=== PATIENT | male | born 1975 | race Caucasian/White ===

== ENCOUNTER 2025-05-17 09:26 | Observation (INO) | payer BC ==
[2025-05-17] MEDS: SODIUM CHLORIDE 0.9% 500 ML INFUS.BAG IV ONE (10:55)
[2025-05-17 11:18] LABS: MCHC 33.9 g/dl (32.3-36.5); MEAN CELL VOLUME 88.0 fl (79.0-92.2); MEAN PLT VOLUME 10.4 fl (9.4-12.4); RDW 12.8 % (12.1-15.9)
[2025-05-17 11:44] LABS: CO2 23.0 mmol/L (21-32)
[2025-05-17 11:45] LABS: GLUCOSE,RANDOM 105.0 mg/dL (74-106)
[2025-05-17 11:48] LABS: CREATININE 1.3 mg/dL (0.55-1.3); SGOT/AST 146.0 U/L (15-37); SGPT/ALT 69.0 U/L (13-61)
[2025-05-17 11:49] LABS: TOT PROT 7.9 g/dl (6.4-8.2)
[2025-05-17 11:50] LABS: ALK PHOS 94.0 U/L (45-117)
[2025-05-17 12:01] LABS: EPI CELLS >36 /uL (0-25.1); HYALINE CASTS 22 /uL (0-3.1); URINE APPEARANCE CLOUDY; URINE BACTERIA 122 /uL (0-1359); URINE BILIRUBIN NEGATIVE (NEGATIVE); URINE COLOR DK YELLOW; URINE GLUCOSE (UA) NEGATIVE (NEGATIVE); URINE KETONE TRACE (NEGATIVE); URINE LEUK ESTERASE NEGATIVE (NEGATIVE); URINE NITRITE NEGATIVE (NEGATIVE); URINE PROTEIN 2+ (NEGATIVE); URINE UROBILINOGEN 1.0 mg/dL (0.2-1.0)
[2025-05-17 12:18] LABS: URINE RBC 20.1 /uL (0-23.9); URINE WBC 74.1 /uL (0-25.8); YEAST NONE SEEN (NEGATIVE)
[2025-05-17] MEDS ORDERED: CEFTRIAXONE 1 GM/50 ML BAG ONE (13:17)
[2025-05-17] MEDS: CEFTRIAXONE 1 GM in DEXTROSE 5%-WATER - 50 ML IVPB SCH (13:48)
[2025-05-17] MEDS ORDERED: AZITHROMYCIN IVPB 500 MG/250 ML BAG IVPB ONE (14:26)
[2025-05-17] MEDS: AZITHROMYCIN IVPB 500 MG/250 ML BAG IVPB SCH (14:37)
[2025-05-17] MEDS: LACTATED RINGERS SOLUTION 1,000 ML/1,000 ML INFUS.BAG IV SCH (14:37)
[2025-05-17 15:08] LABS: HCV DIAGNOSTIC IN-HOUSE W/RFLX NON-REACTIVE (NONREACTIVE)
[2025-05-17 15:15] LABS: HIV INTERPRETATION NEGATIVE (NEGATIVE)
[2025-05-17] MEDS ORDERED: ACETAMINOPHEN 500 MG TABLET (FP) ONE (17:41)
[2025-05-17] MEDS: ACETAMINOPHEN 500 MG TABLET (FP) PO PRN (17:43)
[2025-05-17] MEDS ORDERED: HEPARIN NA (PORCINE) 5,000 UNITS/ML 1ML VIAL ONE (22:19)
[2025-05-17] MEDS: HEPARIN NA (PORCINE) 5,000 UNITS/ML 1ML VIAL SQ SCH (22:22)
[2025-05-18 06:47] LABS: CO2 25.0 mmol/L (21-32); GLUCOSE,RANDOM 99.0 mg/dL (74-106)
[2025-05-18 06:51] LABS: CREATININE 0.8 mg/dL (0.55-1.3)
[2025-05-18 07:16] LABS: MCHC 32.9 g/dl (32.3-36.5); MEAN CELL VOLUME 90.0 fl (79.0-92.2); MEAN PLT VOLUME 10.8 fl (9.4-12.4); RDW 13.0 % (12.1-15.9)
[2025-05-18] MEDS ORDERED: HEPARIN NA (PORCINE) 5,000 UNITS/ML 1ML VIAL ONE (09:40)
[2025-05-18] MEDS ORDERED: AZITHROMYCIN IVPB 500 MG/250 ML BAG IVPB ONE (09:40)
[2025-05-18] MEDS ORDERED: CEFTRIAXONE 1 GM/50 ML BAG ONE (09:40)
[2025-05-18] MEDS ORDERED: ACETAMINOPHEN 500 MG TABLET (FP) PO PRN (12:39)
[2025-05-18] MEDS: POTASSIUM CHLORIDE ORAL LIQUID 20 MEQ/15 ML PO ONE (14:12)
[2025-05-18 15:10] VITALS: BMI 32.2
[2025-05-19 09:21] LABS: MCHC 32.2 g/dl (32.3-36.5); MEAN CELL VOLUME 92.1 fl (79.0-92.2); MEAN PLT VOLUME 10.3 fl (9.4-12.4); RDW 13.2 % (12.1-15.9)
[2025-05-19 10:43] LABS: CO2 28.0 mmol/L (21-32); GLUCOSE,RANDOM 110.0 mg/dL (74-106)
[2025-05-19 10:45] LABS: SGPT/ALT 62.0 U/L (13-61)
[2025-05-19 10:46] LABS: CREATININE 0.6 mg/dL (0.55-1.3); SGOT/AST 97.0 U/L (15-37)
[2025-05-19 10:47] LABS: TOT PROT 6.3 g/dl (6.4-8.2)
[2025-05-19] MEDS: POTASSIUM CHLORIDE TABS 20 MEQ TABLET.ER (FP) PO ONE (10:53)
[2025-05-19 11:14] LABS: ALK PHOS 79.0 U/L (45-117)
[2025-05-19 15:35] VITALS: BP 107/85; PULSE 87; RESP 18; TEMP 98.2
== END 2025-05-19 18:30 | disposition home or self-care (01) ==
LOC: JER 09:26 → JERBED 13:24 → J8W 05-18 13:37
PROVIDERS: ADMIT Internal Medicine; ATTEND Registered Nurse
DX: A41.89 Other specified sepsis (principal); R65.20 Severe sepsis without septic shock; A48.1 Legionnaires' disease; J96.01 Acute respiratory failure with hypoxia; E87.1 Hypo-osmolality and hyponatremia; E86.0 Dehydration; R74.01 Elevation of levels of liver transaminase levels; R19.7 Diarrhea, unspecified; R11.2 Nausea with vomiting, unspecified; R30.0 Dysuria; K76.0 Fatty (change of) liver, not elsewhere classified
CPT/HCPCS: 36415; 71046-TC-FY; 76705-TC; 80048; 80053; 81003; 82962; 83735; 83930; 83935; 85025; 86705; 86708; 86803; 87040; 87070; 87086; 87350; 87389; 87517; 87637-QW; 87899; 93005; 93010; 99285-25; G0378